=== PATIENT | female | born 1990 | race Caucasian/White ===

== ENCOUNTER 2016-07-08 15:21 | Emergency (ER) | payer OTHER ==
[~2016-07-08] VITALS: Ht 162.6 cm; Wt 79.1 kg
[~2016-07-08 15:21] MED LIST: BIOTIN1000 MICRO PO; FLEXERIL5 MG PO; IBUPROFEN800 MG PO; NOHOMEMEDS; PERCOCET 5/31 TABLET PO; ULTRAM50 MG PO; ZINC50 M2 PO; ZOFRAN4 MG PO
[2016-07-08 16:40] LABS: HEMATOCRIT 42.2 % (36.0-46.0); MCH 31.1 PG (29.0-34.0); MCHC 35.8 G/DL (30.0-36.0); MCV 86.8 FL (83-99); MEAN PLAT.VOLUME 10.4 uM^3 (9.5-12.4); PLATELET COUNT 281 K/uL (156-360); RBC DIS.WIDTH-CV 12.2 % (11.8-14.6); RBC DIS.WIDTH-SD 38.1 % (39-53); RED BLOOD COUNT 4.86 M/uL (3.80-5.20); WHITE BLOOD COUNT 14.4 K/uL (4.1-10.2)
[2016-07-08 16:52] LABS: CHLORIDE 109 mEq/L (99-109); POTASSIUM 4.2 mEq/L (3.7-5.4); SODIUM 139 mEq/L (136-147)
[2016-07-08 16:54] LABS: GLUCOSE 98 mg/dL (70-99)
[2016-07-08 16:55] LABS: ANION GAP 10 MEQ/L (2-14)
[2016-07-08 16:56] LABS: TOTAL BILIRUBIN 1.6 mg/dL (0.0-1.0)
[2016-07-08 16:57] LABS: ALKALINE PHOSPHATASE 60 IU/L (3-129); GFR ESTIMATE (CALCULATED) > 59 mL/min/
[2016-07-08 16:59] LABS: UREA NITROGEN (BUN) 22 mg/dL (9-23)
[2016-07-08 17:10] LABS: QUANTITATIVE HCG < 4.0 MIU/ML
[2016-07-08 17:55] LABS: ADD MIUA? YES; BILIRUBIN NEGATIVE; BLOOD TRACE; COLOR YELLOW ((YELLOW)); GLUCOSE (STRIP) NEGATIVE; KETONES NEGATIVE; LEUKOCYTES NEGATIVE; NITRITE NEGATIVE; PH, URINE 5.5 (5-8); PROTEIN (STRIP) NEGATIVE; SPECIFIC GRAVITY 1.026 (1.000-1.030); UROBILINOGEN 0.2 MG/DL (0.2-1.0)
[2016-07-08 19:40] LABS: BACTERIA 1+; CASTS NONE SEEN /LPF; EPITHELIAL CELLS 2+; MUCUS NONE SEEN; RED BLOOD CELLS 0-5 /HPF (0-5); UCUL ADDED? NO; WHITE BLOOD CELLS 0-5 /HPF (0-5)
[2016-07-08 19:41] LABS: AMORPHOUS URATES CRYSTALS 2+; CRYSTALS PRESENT
[2016-07-08] MEDS ORDERED: REGLAN10 MG PO (20:29)
[2016-07-08 20:38] VITALS: BP 118/61
== END 2016-07-08 20:43 | disposition home or self-care (01) ==
LOC: EME 15:21
DX: K52.9 Noninfective gastroenteritis and colitis, unspecified (principal); T83.32XA Displacement of intrauterine contraceptive device, initial encounter; F17.200 Nicotine dependence, unspecified, uncomplicated; Z91.040 Latex allergy status
CPT/HCPCS: 74177; 80053; 81003; 84702; 85027; 99281; 99284; J2765; J3010; J7120

== ENCOUNTER 2017-08-11 18:13 | Emergency (ER) | payer OTHER ==
[~2017-08-11] VITALS: Ht 160 cm; Wt 81.4 kg
[~2017-08-11 18:13] MED LIST changes: +REGLAN10 MG PO
[2017-08-11] MEDS ORDERED: NAPROSYN500 MG PO (20:11)
[2017-08-11] MEDS ORDERED: TRAMADOL HCL50 MG PO (20:11)
[2017-08-11 20:18] VITALS: BP 145/75
== END 2017-08-11 20:18 | disposition home or self-care (01) ==
LOC: EME 18:13
DX: S30.0XXA Contusion of lower back and pelvis, initial encounter (principal); F17.200 Nicotine dependence, unspecified, uncomplicated; W00.0XXA Fall on same level due to ice and snow, initial encounter; Z91.040 Latex allergy status
CPT/HCPCS: 72220; 99281; 99283; J1885